=== PATIENT | male | born 1960 | race Caucasian/White ===

== ENCOUNTER 2022-10-28 09:55 | Outpatient (CLI) | payer BC, SELFPAY ==
[2022-10-28 12:59] LABS: HDL Cholesterol* 68 mg/dL (>=40)
[2022-10-28 13:05] LABS: Creatine Kinase* 374 U/L (54-186)
[2022-10-28 13:16] LABS: Blood Urea Nitrogen* 15 mg/dL (7-30); Carbon Dioxide* 24 mmol/L (20-32); Chloride* 104 mmol/L (96-114); Potassium* 4.5 mmol/L (3.6-5.1); Sodium* 138 mmol/L (135-149)
[2022-10-28 13:17] LABS: Alanine Aminotransferase* 23 U/L (4-50); Albumin* 4.4 g/dL (3.3-5.0); Alkaline Phosphatase* 76 U/L (40-150); Aspartate Amino Transferase* 39 U/L (12-35); Bilirubin Total* 0.6 mg/dL (0.1-1.5); C Reactive Protein* < 0.5 mg/dL (0.5-1.0); Calcium* 9.1 mg/dL (8.4-10.6); Cholesterol* 227 mg/dL (90-199); Creatinine* 0.8 mg/dL (0.5-1.5); Estimated Glomerular Filt Rate 99 ml/min; Glucose* 98 mg/dL (60-115); LDL Cholesterol Calculated 145 mg/dL (<100); Total Protein* 7.5 g/dL (6.0-8.3); Triglycerides* 70 mg/dL (40-149)
[2022-10-28 13:24] LABS: Vitamin D 25 Hydroxy* 40 ng/mL (30-80)
[2022-10-28 13:27] LABS: Vitamin B12* 602 pg/mL (243-894)
== END 2022-10-28 09:56 | disposition home or self-care (01) ==
PROVIDERS: PCP Internal Medicine; Visit Provider Internal Medicine
DX: Z00.00 Encounter for general adult medical examination without abnormal findings (principal); M62.89 Other specified disorders of muscle
CPT/HCPCS: 80053; 80061; 82306; 82550; 82607; 82728; 84443; 86140

== ENCOUNTER → 2024-10-08 14:27 | Outpatient (RCR) | payer SELFPAY | END | disposition home or self-care (01) | LOC: MOW 10-07 11:42 | PROVIDERS: PCP Internal Medicine; Visit Provider Internal Medicine | DX: Z76.0 Encounter for issue of repeat prescription (principal) | CPT/HCPCS: S5170 ==

== ENCOUNTER 2025-05-16 10:59 | Outpatient (CLI) | payer MEDICARE, SELFPAY | END 2025-05-16 11:00 | disposition home or self-care (01) | PROVIDERS: PCP Internal Medicine; Visit Provider Internal Medicine | DX: E78.5 Hyperlipidemia, unspecified (principal); Z12.5 Encounter for screening for malignant neoplasm of prostate | CPT/HCPCS: 80061; G0103 ==

== ENCOUNTER 2025-05-17 10:41 | Outpatient (CLI) | payer MEDICARE, SELFPAY ==
--- NOTE | 2025-05-17 10:45 | CRLHL7_ITS ---
For Patients: As a result of the Century Cures Act, medical imaging exams and procedure reports are released immediately into your electronic medical record. You may view this report before your referring provider. If you have questions, please contact your health care provider. Examination: US abdominal aorta Indication: Hyperlipidemia and H/O Smoking. Abdominal aortic aneurysm screening. Technique: Huerta scale and color Doppler images of the aorta and common iliac arteries are obtained. Comparison: None Findings: Proximal aorta: 2.5 x 2.9 cm Mid aorta: 2.3 x 2.5 cm Distal aorta: 1.9 x 2.0 cm Right common iliac artery: 1.2 x 1.1 cm Left common iliac artery: 1.1 x 1.0 cm Atherosclerotic plaque in the distal aorta noted. Impression: No aneurysm. Dictated by Armando Gonzales MD @ 05/17/2025 2:14:19 PM (Electronically Signed)
== END 2025-05-17 10:42 | disposition home or self-care (01) ==
LOC: US 10:42
PROVIDERS: PCP Internal Medicine; Visit Provider Internal Medicine
DX: Z13.6 Encounter for screening for cardiovascular disorders (principal); E78.5 Hyperlipidemia, unspecified
CPT/HCPCS: 76706

== ENCOUNTER 2025-08-29 14:33 | Outpatient (CLI) | payer MEDICARE, SELFPAY | END 2025-08-29 14:34 | disposition home or self-care (01) | LOC: NFLDREF 14:34 | PROVIDERS: PCP Internal Medicine; Visit Provider Internal Medicine | DX: Z01.818 Encounter for other preprocedural examination (principal) | CPT/HCPCS: 80053 ==

== ENCOUNTER 2025-09-22 10:26 | Outpatient (CLI) | payer MEDICARE, SELFPAY ==
--- NOTE | 2025-09-22 10:00 | CRLHL7_ITS ---
For Patients: As a result of the Century Cures Act, medical imaging exams and procedure reports are released immediately into your electronic medical record. You may view this report before your referring provider. If you have questions, please contact your health care provider. INDICATION: Lung cancer screening. History of smoking. High risk patient with greater than 20 pack-year smoking history. TECHNIQUE: Low-dose lung cancer screening non-contrast CT chest. Dose reduction techniques were used. COMPARISON: None. FINDINGS: NODULES: Nodule within the right lower lobe measures 6.2 millimeters, 3/95. Left lower lobe nodule measures 5.5 millimeters, 3/127. LUNGS AND PLEURA: Emphysema. MEDIASTINUM: No adenopathy. CORONARY ARTERY CALCIFICATION: Moderate. LIMITED UPPER ABDOMEN: Unremarkable. MUSCULOSKELETAL: Degenerative changes in the upper thoracic spine and chronic degenerative changes at the sternoclavicular joints, right greater than left. IMPRESSION: Right lower lobe nodule measures 6.2 millimeters. LUNG-RADS CATEGORY: 3: Probably benign. RADIOLOGIST RECOMMENDATION: Low-dose CT chest in 6 months. Please note that all CT scans at this facility use dose modulation, iterative reconstruction, and/or weight-based dosing when appropriate to reduce radiation dose to as low as reasonably achievable. Dictated by Armando Gonzales MD @ 09/22/2025 11:04:02 AM (Electronically Signed)
== END 2025-09-22 10:27 | disposition home or self-care (01) ==
LOC: CT 10:26
PROVIDERS: PCP Internal Medicine; Visit Provider Internal Medicine
DX: Z12.2 Encounter for screening for malignant neoplasm of respiratory organs (principal); F17.210 Nicotine dependence, cigarettes, uncomplicated
CPT/HCPCS: 71271